=== PATIENT | female | born 1955 | race Caucasian/White ===

== ENCOUNTER → 2020-03-08 | Outpatient (CLI) | payer MEDICARE, OTHER ==
[~2020-03-08] MED LIST: ANTIVERT 25MG T25 MG PO; DEPAKOTE250 MG PO; LEVAQUIN500 MG PO; LISINOPRIL20 MG PO; MUCINEX600 MG PO; NEURONTIN 300300 MG PO; PROAMATINE 2.52.5 MG PO; SYNTHROID100 MCG PO
== END ==
LOC: EXRD 02-26 08:30
DX: K74.60 Unspecified cirrhosis of liver (principal); Z90.49 Acquired absence of other specified parts of digestive tract
CPT/HCPCS: 76705

== ENCOUNTER → 2020-03-16 | Outpatient (CLI) | payer MEDICARE, OTHER | LOC: RAD 10:52 | DX: R05 Cough (principal); J98.4 Other disorders of lung | CPT/HCPCS: 71046 ==

== ENCOUNTER → 2020-12-27 | Outpatient (CLI) | payer MEDICARE, OTHER | LOC: US 09:30 | DX: K74.60 Unspecified cirrhosis of liver (principal) | CPT/HCPCS: 76705 ==

== ENCOUNTER → 2021-01-31 | Outpatient (CLI) | payer MEDICARE ==
[2021-02-01 07:10] LABS: RHEUMATOID ARTHRITIS FACTOR <10.0 IU/mL (<14.0)
[2021-02-01 14:14] LABS: A/G RATIO 1.3 (0.7-1.7); ALBUMIN 3.9 g/dL (2.9-4.4); ALPHA-1-GLOBULIN 0.3 g/dL (0.0-0.4); ALPHA-2-GLOBULIN 0.9 g/dL (0.4-1.0); ANGIOTENSIN-CONVERTING ENZYME 25 U/L (14-82); GAMMA GLOBULIN 0.8 g/dL (0.4-1.8); GLOBULIN, TOTAL 2.9 g/dL (2.2-3.9); M-SPIKE Not Observed g/dL (Not Observed); PROTEIN, TOTAL, SERUM 6.8 g/dL (6.0-8.5)
== END ==
LOC: LAB 13:51
PROVIDERS: Internal Medicine; Nurse Practitioner Family
DX: R20.0 Anesthesia of skin (principal); B18.2 Chronic viral hepatitis C; R52 Pain, unspecified; G62.9 Polyneuropathy, unspecified
CPT/HCPCS: 36415; 82164; 82595; 82607; 82728; 82746; 83520; 84155; 84165; 85652; 86140; 86200; 86431

== ENCOUNTER → 2021-08-24 | Outpatient (CLI) | payer MEDICARE, OTHER ==
[2021-08-24 10:36] LABS: HEMOGLOBIN 15.1 gm/dl (12.3-15.3); RED BLOOD COUNT 4.57 M/UL (4.00-5.10); WHITE BLOOD COUNT 7.6 K/UL (4.5-11.0)
== END ==
LOC: LAB 10:13
PROVIDERS: Registered Nurse
DX: M10.9 Gout, unspecified (principal); Z79.899 Other long term (current) drug therapy
CPT/HCPCS: 36415; 80053; 80061; 83036; 84443; 84550; 85025; G0480